=== PATIENT | female | born 1940 | race Caucasian/White ===

== ENCOUNTER 2019-10-16 14:15 | Inpatient (IN) | payer MEDICARE, SELFPAY ==
[2019-10-16] VITALS (10 sets, daily range): BP systolic 104–150; BP diastolic 63–92; PULSE 88–130; RESP 18–22; TEMP 36.6–37.2; O2SAT 93–100; BMI 33.3
--- NOTE | ~2019-10-16 | XR_ITS ---
EXAMINATION: XR chest 1V portable EXAM DATE: 10/16/2019 16:50 INDICATION: Fatigue, symptoms 2 months. TECHNIQUE: Portable AP frontal chest x-ray was obtained. There is no prior study for comparison. FINDINGS: The cardiac silhouette is enlarged. There is pulmonary vascular congestion. There is indist inct reticulation with a bibasal predominance which may indicate pulmonary edema. Bibasilar pneumonia not excludable. Small to moderate pleural effusions bilaterally. There is no pneumothorax suspected. There is aortic arterial sclerosis. There are bony degenerative changes. IMPRESSION: 1. Findings consistent with moderate CHF exacerbation. 2. Basilar pneumonia not excludable. Reviewed, dictated and finalized at location A. INSPECTOR
--- NOTE | 2019-10-16 14:43 | ECG_ITS ---
Measurements Intervals [place] Rate: 117 P: MA: 0 QRS: 19 QRSD: 76 T: 100 QT: 292 QTc: 409 Interpretive Statements ATRIAL FIBRILLATION WITH RAPID VENTRICULAR RESPONSE ANTEROSEPTAL INFARCT, AGE INDETERMINATE BORDERLINE ST-T WAVE ABNORMALITY- INF/LAT LEADS ABNORMAL ECG Electronically Signed On 10-16-2019 14:56:02 CHANGE OVER by José Miguel Sarkar D.O.
[2019-10-16 15:01] LABS: Basophils Percent Auto 0.7 % (0.2-1.2); Eosinophils Absolute Auto 0.2 K/mm3 (0-0.3); Eosinophils Percent Auto 2.8 % (0-4.4); Hematocrit 41.4 % (37.0-47.0); Hemoglobin 13.3 g/dL (12.0-15.0); Immature Granulocyte Absolute 0.02 K/mm3 (0.00-0.031); Immature Granulocyte Percent A 0.4 % (0-0.5); Lymphocytes Absolute Auto 1.78 K/mm3 (0.9-3.2); Lymphocytes Percent Auto 32.8 % (18.3-44.2); Mean Corpuscular HGB Conc 32.1 g/dl (32-36); Mean Corpuscular Hemoglobin 29.8 pg (26-34); Mean Corpuscular Volume 92.6 fl (80-100); Mean Platelet Volume 10.3 fl (7.4-10.4); Monocytes Absolute Auto 0.7 K/mm3 (0.1-0.6); Monocytes Percent Auto 12.4 % (2.6-8.5); Neutrophils Absolute Auto 2.8 K/mm3 (1.3-6.7); Neutrophils Percent Auto 50.9 % (45.5-73.1); Platelet Count Result 195 k/mm3 (150-375); Red Blood Count 4.47 M/mm3 (4.2-5.4); Red Cell Distribution Width 15.2 % (11.5-14.5); White Blood Count 5.4 K/mm3 (4.5-10.0)
[2019-10-16 15:18] LABS: Alanine Aminotransferase 22 U/L (4-35); Albumin Level 3.8 g/dL (3.5-5.1); Alkaline Phosphatase 53 U/L (38-126); Aspartate Amino Transferase 27 U/L (14-36); Bilirubin,Total 0.9 mg/dL (0.2-1.3); Blood Urea Nitrogen 18 mg/dL (7-17); Calcium 9.3 mg/dL (8.4-10.2); Carbon Dioxide 24 mmol/L (22-30); Chloride 102 mmol/L (98-107); Estimated CRCL calculation 52 ml/min; Estimated Glomerular Filt Rate 60; Glucose 101 mg/dL (65-105); Potassium 4.1 mmol/L (3.4-5.0); Sodium 135 mmol/L (137-145)
--- NOTE | 2019-10-16 16:24 | ED.WEAKNESS ---
HPI - Weakness General Chief complaint: Weakness Stated complaint: Weakness, lymphadema Time Seen by Provider: 10/16/19 16:21 Source: patient, family () and RN notes reviewed Mode of arrival: ambulatory Limitations: no limitations History of Present Illness HPI Narrative: Pt is a 78 y/o female presenting to the ED c/o weakness. Pt reports she has been experiencing generalized weakness since last August. Pt states she has been seen by her PCP in September of this year, Dr. Torres, who suspects she has not been receiving adequate sleep and stated the pt should take Melatonin. Pt states she called her Home Care Music Therapist, Dr. Faith, last week who suggested the pt see her PCP again. Pt also reports BLE swelling for years that has gradually worsened, but denies hemoptysis. Pt states she has had an active hemorrhoid for a long time that causes bleeding. Pt states she is currently taking Eliquis due to a Hx of A Fib. Pt notes she last had her blood drawn in September of this year. Pt also reports Hx's of DM, HTN, HLD, and hypothyroid, but denies Hx's of emphysema, Asthma, COPD, cancer, [place], TIA, CVA, CHF, or anemia. Onset (ago): month(s) (2) Location: generalized Associated symptoms: other (Chronic BLE swelling) Related Data Allergies Allergy/AdvReac Type Severity Reaction Status Date / Time No Known Allergies Allergy Verified 10/16/19 16:43 Review of Systems Review of Systems: All systems reviewed & are unremarkable except as noted in HPI and below Constitutional: Constitutional: Reports weakness (Generalized) Respiratory: Respiratory: Denies hemoptysis Integumentary/Breasts: Skin/Breast: Reports swelling (Chronic BLE) PMFSH Past Medical History Medical History (Updated 10/16/19 @ 19:14 by Migel Wagoner MD) Diabetes mellitus Hemorrhoid HLD (hyperlipidemia) HTN (hypertension) Hypothyroid Surgical History Surgical History No significant past surgical history Social History Social History Smoking status: Never smoker Gender identity (if verbalized by the patient): Female Exam Narrative: Exam Narrative: General appearance: Well-developed, well-nourished, anxious, at bedside Skin: Pale, 2+ edema lower extremity up to the knees bilaterally Head: Normocephalic, nontraumatic Eyes: Clear conjunctiva ENT: Oropharynx normal, ears normal, nose normal Neck: Supple, nontender Chest and respiratory: Airway patent, no respiratory distress, no accessory muscle use Heart: Regular rate/rhythm Abdomen: Soft, nontender, no organomegaly, quiet bowel sounds Vascular: Normal peripheral pulses, normal capillary refill. Musculoskeletal: Normal range of motion, nontender back Neurologic: Alert and oriented ?3, ETYMOLOGY TEACHER is normal as tested, no gross motor deficit Course Course Emergency Course: Stable Vital Signs Vital signs: Vital Signs Temperature 36.7 C 10/16/19 14:43 Pulse Rate 117 H 10/16/19 14:43 Respiratory Rate 18 10/16/19 14:43 Blood Pressure 150/76 H 10/16/19 14:43 Pulse Oximetry 100 10/16/19 14:43 Temperature 36.7 C 10/16/19 14:43 Pulse Rate 120 H 10/16/19 18:49 Respiratory Rate 18 10/16/19 18:49 Blood Pressure 140/81 10/16/19 18:49 Pulse Oximetry 98 10/16/19 18:49 MDM - Weakness MDM Narrative Medical decision making narrative: Patient presents with generalized weakness, lower extremity edema since August 2019. My differential diagnosis is electrolyte imbalance, urinary tract infection, pneumonia, congestive heart failure, hepatic failure, renal failure. Versus depression. Labs, chest x-ray and UA ordered. Furthe
[2019-10-16 17:11] LABS: Add Urine Microscopic? YES; Appearance Urine Cloudy (Clear); Bacteria Urine 4+ /hpf; Bilirubin Urine Negative (Negative); Blood Urine 2+ (Negative); Color Urine Yellow (Yellow); Glucose Urine UA Negative (Negative); Ketones Urine Negative (Negative); Leukocyte Esterase Ur 3+ LEU/UL (Negative); Mucus Urine Rare /lpf; Nitrate Urine Negative (Negative); Protein Urine Negative (Negative); Specific Grav Ur 1.015 (1.001-1.035); Squamous Epithelial Cell Urine Occasional /hpf (Few); WBC Urine >75 /hpf
[2019-10-16 18:36] LABS: NT Pro B Type Natriuretic Pept 2780 PG/ML (5-100)
--- NOTE | 2019-10-16 19:29 | PC.NURSE ---
pt requesting to talk w/ doctor. EDP notified.
[2019-10-16] MEDS: FUROSEMIDE INJ 40 MG/4 ML VIAL 60 MG IV PUSH (19:38)
[2019-10-16] MEDS: NITROGLYCERIN OINTMENT 1 INCH DOSE TRANSDERM (19:43)
--- NOTE | 2019-10-16 20:13 | PM.IMHP ---
H&P: HPI History of Present Illness Chief complaint: Generalized weakness since August Narrative: This is a 78 year old diabetic female known to be on chronic anticoagulation w/ Eliquis secondary to chronic atrial fibrillation, HTN, hyperlipidemia who presented to the hospital with a complaint of worsening fatigue and generalized weakness. She has been experiencing generalized weakness and worsening LE edema since August although she reports that there has been a gradual onset over the past few years. Today she presented to the hospital as her weakness, swelling, and exertional shortness of breath have worsened over the past few days. She also has had intermittent rectal bleeding which she attributes to her eliquis and hemorhroids. She is very frustrated as she just saw her Communications Systems Engineer, Dr. Faith and complained about her worsening LE edema and they simply suggested she go and see her PCP. She has had worsening exertional shortness of breath lately as well as worsening LE edema. She has to put her legs up every day to try to get her swelling to go down. She is not currently on any diuretic therapy. She has also had increased abdominal distention and reports chronic UTIs secondary to a bladder prolapse for which she has a scheduled surgery this upcoming Wednesday. She usually knows when she is coming down with a UTI and has not had any recent urinary symptoms. She denies any fever, chills, coughing, sore throat, congestion, chest pain, abdominal pain, dysuria, hematuria, diarrhea, nausea, or vomiting. The patient was evaluated in the ER tonight and found to be in atrial fibrillation w/ RVR, acute CHF exacerbation and have an abnormal urinalysis. She has been treated with Lasix IV and IV ceftriaxone. No other complaints. Review of Systems Review of Systems: All systems reviewed & are unremarkable except as noted in HPI and below [facility] Past Medical History Medical History (Updated 10/16/19 @ 20:32 by Dimitris Murphy MD) Diabetes mellitus Hemorrhoid HLD (hyperlipidemia) HTN (hypertension) Hypothyroid Surgical History Surgical History (Updated 10/16/19 @ 20:32 by Dimitris Murphy MD) History of appendectomy No significant past surgical history S/P knee replacement Social History Social History (Updated 10/16/19 @ 20:33 by Dimitris Murphy MD) Smoking packs per day: 1 Smoking cigarettes per day: 20.0 Years smoked: 10 Smoking pack-years: 10.00 Smoking status: Former smoker Tobacco type: cigarettes Second hand tobacco smoke exposure: Yes Additional smoking assessment comments: Patient smoked for 10 years from [age] years of age. 1ppd. Alcohol intake: never Alcohol use details: drinks occasionally 1 drink Substance use: never Living arrangements: with family Gender identity (if verbalized by the patient): Female Spiritual care concerns: No Agree to blood products: No Meds Home Medications and Allergies Home Medications Medication Instructions Recorded Confirmed Type nitrofurantoin monohyd/m-cryst 100 mg PO Q12H 5 Days #10 cap 10/16/19 Rx [Macrobid] amlodipine 10 mg PO DAILY 10/17/19 10/17/19 History apixaban [Eliquis] 5 mg PO DAILY 10/17/19 10/17/19 History carvedilol 25 mg PO BID 10/17/19 10/17/19 History levothyroxine 100 mcg PO DAILY 10/17/19 10/17/19 History lisinopril 20 mg PO BID 10/17/19 10/17/19 History metformin 500 mg PO DAILY 10/17/19 10/17/19 History Allergies Allergy/AdvReac Type Severity Reaction Status Date / Time No Known Allergies Allergy Verified 10/16/19 16:43 Vital Signs Vital Signs - 24 hr 10/16/19 14:43 10/16/19 18:10 10/16/19 18:49 Temperature 36.7 C Pulse Rate 117 H 119 H 120 H Respiratory Rate 18 22 H 18 Blood Pressure 150/76 H 140/81 140/81 Pulse Oximetry 100 95 98 10/16/19 19:31 10/16/19 19:32 Temperature Pulse Rate 88 130 H Respiratory Rate 22 H Blood Pressure 125/92 H Pulse Oximetry 93 Exam Const: General
--- NOTE | 2019-10-16 21:07 | ADMGEN ---
This patient, Jacqueline Fine, was admitted to IMU Room 200-01. Patient/family oriented to hospital policies and general routines including ID bracelet, bed and alarms, visiting hours, pain management, procedures, bathroom and other care routines, personal items, smoking policy, room service/diet, and visiting hours. Valuables list has been completed. Information on how to activate the Rapid Response Team has been discussed. Patient/Family are encouraged to report perceived risks to care and to ask questions if they do not understand what they are told or what they should do.
[2019-10-16 21:20] LABS: Glucose Point of Care 119 (65-105)
[2019-10-16 23:40] LABS: Troponin I < 0.012 ng/mL (0.000-0.034)
[2019-10-17] VITALS (15 sets, daily range): BP systolic 116–136; BP diastolic 68–81; PULSE 75–126; RESP 18–97; TEMP 36.6–37.1; O2SAT 16–95
--- NOTE | 2019-10-17 | ECHO_ITS ---
Patient Info Name: Jacqueline Fine Age: 79 years : 1940 Gender: Female Ht: 66 in Wt: 207 lbs BSA: 2.13 m2 HR: 90 bpm BP: 118 / 75 mmHg Technical Quality: Good Exam Date: 10/17/2019 11:00 AM Exam Location: [facility] Patient Status: Inpatient Admit Date: 10/16/2019 Staff Ordering Physician: Dimitris Murphy MD Manager Change: Burak Keating, MARY, RT Attending Provider: Eusebio Luther MD Referring Physician: Katherine CLIFTON; Exam Type: CA echo doppler color flow Study Info Indications I50.9 - Heart failure, unspecified Complete two-dimensional, color flow and Doppler transthoracic echocardiogram is performed. Summary 1. Left ventricular chamber dimension is normal. 2. Left ventricular systolic function is normal, estimated at 55-60%. 3. There is moderately increased left ventricular wall thickness. 4. The left ventricular diastolic function is indeterminate. 5. Tissue doppler is not performed. 6. Patient is in atrial fibrillation. 7. Left atrial chamber dimension is severely enlarged. 8. Right atrial chamber dimension is mildly enlarged. 9. There is moderate aortic valve sclerosis. 10. There is mild aortic valve stenosis with a peak velocity of 228 cm/s, mean gradient of 7 mmHg, and aortic valve area of 1.9 cm2. 11. Moderate mitral annular calcification. 12. There is moderate to severe mitral valve regurgitation. 13. There is mild to moderate tricuspid valve regurgitation. 14. Mild pulmonary hypertension, estimated pulmonary arterial systolic pressure is 46 mmHg. 15. Dilated inferior vena cava with <50% collapse upon inspiration consistent with significantly elevated right atrial pressure, 15 mmHg. Left Ventricle Patient is in atrial fibrillation. Tissue doppler is not performed. Left ventricular chamber dimension is normal. Left ventricular systolic function is normal, estimated at 55-60%. There is moderately increased left ventricular wall thickness. The left ventricular diastolic function is indeterminate. Right Ventricle Right ventricular chamber dimension is normal. Right ventricular systolic function is normal. Left Atria Left atrial chamber dimension is severely enlarged. Right Atria Right atrial chamber dimension is mildly enlarged. Aortic Valve The aortic valve is probable trileaflet. There is moderate aortic valve sclerosis. There is mild aortic valve stenosis with a peak velocity of 228 cm/s, mean gradient of 7 mmHg, and aortic valve area of 1.9 cm2. There is no aortic valve regurgitation. Pulmonic Valve There is no pulmonic regurgitation. Mitral Valve Moderate mitral annular calcification. There is no mitral valve stenosis. There is moderate to severe mitral valve regurgitation. Tricuspid Valve There is mild to moderate tricuspid valve regurgitation. Mild pulmonary hypertension, estimated pulmonary arterial systolic pressure is 46 mmHg. Pericardium/Pleural There is no pericardial effusion. Inferior Vena Cava Dilated inferior vena cava with <50% collapse upon inspiration consistent with significantly elevated right atrial pressure, 15 mmHg. Aorta The aortic root size at the sinus of Valsalva is normal. Left Ventricular Outflow Tract Name Value Normal LVOT 2D
[2019-10-17 02:36] LABS: Troponin I 0.014 ng/mL (0.000-0.034)
[2019-10-17 06:00] LABS: Blood Urea Nitrogen 18 mg/dL (7-17); Carbon Dioxide 26 mmol/L (22-30); Chloride 102 mmol/L (98-107); Estimated CRCL calculation 51 ml/min; Estimated Glomerular Filt Rate 60; Glucose 92 mg/dL (65-105); Potassium 3.3 mmol/L (3.4-5.0); Sodium 139 mmol/L (137-145)
[2019-10-17 06:03] LABS: Troponin I 0.021 ng/mL (0.000-0.034)
[2019-10-17 08:49] LABS: Glucose Point of Care 116 (65-105)
[2019-10-17] MEDS: FUROSEMIDE INJ 40 MG/4 ML VIAL IV PUSH (09:07)
[2019-10-17] MEDS: POTASSIUM CHLORIDE 20 MEQ TABLET 40 MEQ PO (09:07)
--- NOTE | 2019-10-17 12:05 | PM.IMPN ---
Progress Note: A&P Assessment and Plan (1) Atrial fibrillation with rapid ventricular response: Code(s): I48.91 - Unspecified atrial fibrillation Status: Acute Assessment and Plan: Patient with chronic AFIB now with RVR. Patient admitted to the IMU and started on Cardizem IV for rate control. Echo ordered. Will consult cardiology. Resume Eliquis. Resume Coreg with plans to stop Diltiazem. Obtain old records. Discussed with Cardiology. Also, Echo returned showing mod-sever MR with preserved EF 55-60% and pulmonary HTN. (2) CHF (congestive heart failure): Qualifiers: Heart failure chronicity: acute Heart failure type: unspecified Qualified Code(s): I50.9 - Heart failure, unspecified Code(s): I50.9 - Heart failure, unspecified Status: Acute Assessment and Plan: Conditon improved today. Currently on IV Lasix with excellent UOP. Replace K+. Monitor electrolytes and kideny function. Echo ordered. (3) HTN (hypertension): Qualifiers: Hypertension type: unspecified Qualified Code(s): I10 - Essential (primary) hypertension Code(s): I10 - Essential (primary) hypertension Status: Chronic Assessment and Plan: BP reviewed on 10/17/19. BP well controlled. Continue Diltiazem drip. Add back home Coreg. (4) Diabetes mellitus: Qualifiers: Diabetes mellitus complication status: without complication Diabetes mellitus snf insulin use: without snf use Diabetes mellitus type: type 2 Qualified Code(s): E11.9 - Type 2 diabetes mellitus without complications Code(s): E11.9 - Type 2 diabetes mellitus without complications Status: Chronic Assessment and Plan: Glucose reviewed on 10/17/19. Glucose well controlled. Her home metformin on hold. Contineu Accuchecks with SSI Coverage. Hypoglycemic protocol available. (5) Urinary tract infection: Qualifiers: Hematuria presence: without hematuria Urinary tract infection type: site unspecified Qualified Code(s): N39.0 - Urinary tract infection, site not specified Code(s): N39.0 - Urinary tract infection, site not specified Status: Acute Assessment and Plan: UA noted and concered for UTI. Rocephin started in ER. Will continue. Follow up on UCx results. (6) Hypothyroidism: Qualifiers: Hypothyroidism type: unspecified Qualified Code(s): E03.9 - Hypothyroidism, unspecified Code(s): E03.9 - Hypothyroidism, unspecified Status: Acute Assessment and Plan: TSH mildly elevated. Probably not clinically significant. Resume home Synthroid dose and plan to recheck levels after discharge. Subjective Date/time seen: 10/17/19 12:05 Interval history: 78yo female with chronic AFib here for AFib/RVR and CHF. Assuming care. Chart reviewed. She denies chest pain shortness of breath. She does state that she would get 'heaviness'and chest when she exerts herself. She has had a recent stress test few months ago that was negative. She sees Dr. Faith who is a safekeeping clerk in [place]. Prior to admission, she was having trouble sleeping at night and was restless. She did sleep in recliner with benefit. She feels better today. Exam Narrative: Exam Narrative: Gen - NARD Neck- no elevation of JVP. Chest -decreased breath sounds bibasilar with inspiratory crackles mid lower lung hooper CV - irregularly irregular. 2/6 murmur loudest LUSB. Tele showing AFIb with occas RVR. Abd - Soft, NT/ND, Positive BS. No HJR - Wick anchored draining clear yellow urine Ext - 2-3+ pitting pedal edema Neuro - nonfocal Psych - alert, pleasant and cooperative Skin - Warm and dry Objective Data Vital Signs Vital Signs: Vital Signs - 24 hr 10/16/19 14:43 10/16/19 18:10 10/16/19 18:49 Temperature 98.0 F Pulse Rate 117 H 119 H 120 H Respiratory Rate 18 22 H 18 Blood Pressure 150/76 H 140/81 140/81 Pulse
--- NOTE | 2019-10-17 12:57 | PM.CNCAR ---
Assessment and Plan Assessment and plan (1) HTN (hypertension): Qualifiers: Hypertension type: unspecified Qualified Code(s): I10 - Essential (primary) hypertension Code(s): I10 - Essential (primary) hypertension Status: Chronic (2) HLD (hyperlipidemia): Qualifiers: Hyperlipidemia type: unspecified Qualified Code(s): E78.5 - Hyperlipidemia, unspecified Code(s): E78.5 - Hyperlipidemia, unspecified Status: Chronic (3) Atrial fibrillation with rapid ventricular response: Code(s): I48.91 - Unspecified atrial fibrillation Status: Acute Assessment and Plan: [id number] 5. Rate control with Diltiazem drip and Coreg. Once rate is controlled will transition to PO medications. On Eliquis. (4) CHF (congestive heart failure): Qualifiers: Heart failure chronicity: acute Heart failure type: unspecified Qualified Code(s): I50.9 - Heart failure, unspecified Code(s): I50.9 - Heart failure, unspecified Status: Acute Assessment and Plan: Check echo. Continue Lasix for diureses and replete Potassium. Check Mag level. History of Present Illness History of Present Illness Consult date/time: 10/17/19 12:57 Consult regarding atrial fib and CHF. 79 yr old woman with a history of hypertension, dyslipidemia, atrial fibrillation, DM who sees Dr. Faith at [facility] in [place] who presents to hospital for generalized weaknesss since August. She also notes worsening lower extremity edema and BARNETT walking minimal distance. Denies chest discomfort. Reports atrial fibrillation diagnosed in Jun and has been on rate control and Eliquis for it. Denies palpitations. She came to ER and found to be in CHF and rapid atrial fibrillation and UTI. She is on rate control with diltiazem drip and Coreg. Reports she had stress test and echo in last 1-[address] Faith. Reason For Visit: Generalized weakness since August Review of Systems Constitutional: Constitutional: Reports as per HPI, Reports lethargy and Reports weakness Cardiovascular: Cardiovascular: Reports as per HPI, Denies chest pain, Reports leg edema, Denies lightheadedness and Denies palpitations Gastrointestinal: Gastrointestinal: Reports as per HPI and Denies abdominal pain Genitourinary: Genitourinary: Reports as per HPI Musculoskeletal: Musculoskeletal: Reports as per HPI Neurologic: Reports as per HPI PMFSH Past Medical History Medical History (Updated 10/16/19 @ 20:32 by Dimitris Murphy MD) Diabetes mellitus Hemorrhoid HLD (hyperlipidemia) HTN (hypertension) Hypothyroid Surgical History Surgical History (Updated 10/16/19 @ 20:32 by Dimitris Murphy MD) History of appendectomy No significant past surgical history S/P knee replacement Social History Social History (Updated 10/16/19 @ 20:33 by Dimitris Murphy MD) Smoking packs per day: 1 Smoking cigarettes per day: 20.0 Years smoked: 10 Smoking pack-years: 10.00 Smoking status: Former smoker Tobacco type: cigarettes Second hand tobacco smoke exposure: Yes Additional smoking assessment comments: Patient smoked for 10 years from [age] years of age. 1ppd. Alcohol intake: never Alcohol use details: drinks occasionally 1 drink Substance use: never Living arrangements: with family Gender identity (if verbalized by the patient): Female Spiritual care concerns: No Agree to blood products: No Meds Home Medications and Allergies Home Medications Medication Instructions Recorded Confirmed Type nitrofurantoin monohyd/m-cryst 100 mg PO Q12H 5 Days #10 cap 10/16/19 Rx [Macrobid] amlodipine 10 mg PO DAILY 10/17/19 10/17/19 History apixaban [Eliquis] 5 mg PO DAILY 10/17/19 10/17/19 History carvedilol 25 mg PO BID 10/17/19 10/17/19 History levothyroxine 100 mcg PO DAILY 10/17/19 10/17/19 History lisinopril 20 mg PO BID 10/17/19 10/17/19 History metformin 500 mg PO DAILY 02
[2019-10-17 13:04] LABS: Glucose Point of Care 108 (65-105)
[2019-10-17 13:37] LABS: Magnesium 1.7 mg/dL (1.6-2.3)
[2019-10-17 17:26] LABS: Glucose Point of Care 104 (65-105)
[2019-10-17] MEDS: APIXABAN 5 MG TABLET PO (18:15)
[2019-10-17] MEDS: carvediloL 25 MG TABLET PO (20:03)
[2019-10-17 20:49] LABS: Glucose Point of Care 116 (65-105)
[2019-10-18] VITALS (17 sets, daily range): BP systolic 117–134; BP diastolic 54–85; PULSE 70–106; RESP 16–20; TEMP 36.2–37.2; O2SAT 90–98
[2019-10-18 04:46] LABS: Hematocrit 42.4 % (37.0-47.0); Hemoglobin 12.6 g/dL (12.0-15.0); Mean Corpuscular HGB Conc 29.7 g/dl (32-36); Mean Corpuscular Hemoglobin 29.4 pg (26-34); Mean Corpuscular Volume 99.1 fl (80-100); Mean Platelet Volume 10.6 fl (7.4-10.4); Platelet Count Result 156 k/mm3 (150-375); Red Blood Count 4.28 M/mm3 (4.2-5.4); Red Cell Distribution Width 15.3 % (11.5-14.5)
[2019-10-18] MEDS: LEVOTHYROXINE SODIUM 100 MCG TABLET PO (06:29)
[2019-10-18 06:40] LABS: Albumin Level 3.3 g/dL (3.5-5.1); Blood Urea Nitrogen 19 mg/dL (7-17); Calcium 8.8 mg/dL (8.4-10.2); Carbon Dioxide 27 mmol/L (22-30); Chloride 103 mmol/L (98-107); Estimated CRCL calculation 49 ml/min; Estimated Glomerular Filt Rate 60; Glucose 111 mg/dL (65-105); Magnesium 1.8 mg/dL (1.6-2.3); Phosphorus 4.1 mg/dL (2.5-4.5); Potassium 3.6 mmol/L (3.4-5.0); Sodium 138 mmol/L (137-145)
[2019-10-18 08:24] LABS: Glucose Point of Care 127 (65-105)
[2019-10-18] MEDS: APIXABAN 5 MG TABLET PO ×2 (08:38→17:38)
[2019-10-18] MEDS: carvediloL 25 MG TABLET PO ×2 (08:39→20:28)
[2019-10-18] MEDS: FUROSEMIDE INJ 40 MG/4 ML VIAL IV PUSH (08:39)
--- NOTE | 2019-10-18 09:34 | PM.PNCARD ---
Progress Note: A&P Assessment and Plan (1) HTN (hypertension): Qualifiers: Hypertension type: unspecified Qualified Code(s): I10 - Essential (primary) hypertension Code(s): I10 - Essential (primary) hypertension Status: Chronic Assessment and Plan: Stable. (2) HLD (hyperlipidemia): Qualifiers: Hyperlipidemia type: unspecified Qualified Code(s): E78.5 - Hyperlipidemia, unspecified Code(s): E78.5 - Hyperlipidemia, unspecified Status: Chronic (3) Atrial fibrillation with rapid ventricular response: Code(s): I48.91 - Unspecified atrial fibrillation Status: Acute Assessment and Plan: [id number] 5. Rate control with Diltiazem drip and Coreg. Will stop Diltiazem drip and start PO dosing to maintain rate control. On Eliquis (4) CHF (congestive heart failure): Qualifiers: Heart failure chronicity: acute Heart failure type: unspecified Qualified Code(s): I50.9 - Heart failure, unspecified Code(s): I50.9 - Heart failure, unspecified Status: Acute Assessment and Plan: She has heart failure with preserved EF (diastolic heart failure) with mod-severe MR. Continue with diuresis. Subjective Date/time seen: 10/18/19 09:34 States her breathing is improving and less leg edema. Exam Const: General: comfortable and no acute distress Neck: Neck: no JVD Resp: Effort & Inspection: normal respiratory effort Auscultation: crackles, no rales, no rhonchi and no wheezes Other: Mild right base crackles Cardio: Rate: regular rate Rhythm: abnormal rhythm Heart sounds: no murmurs GI: Inspection: non-distended Neuro: Speech: normal speech Extrem: Right lower extremity: edema Left lower extremity: edema Other: Mild edema of both legs Objective Data Vital Signs Vital Signs: Vital Signs - 24 hr 10/17/19 10:00 10/17/19 12:00 10/17/19 14:00 Temperature 98.5 F Pulse Rate 89 104 H 102 H Respiratory Rate 20 Blood Pressure 131/74 Pulse Oximetry 95 10/17/19 16:00 10/17/19 18:00 10/17/19 19:34 Temperature 98.3 F 97.9 F Pulse Rate 97 82 84 Respiratory Rate 97 H 18 Blood Pressure 127/72 130/68 Pulse Oximetry 16 L 95 10/17/19 20:00 10/17/19 20:03 10/17/19 21:57 Temperature Pulse Rate 97 101 H 113 H Respiratory Rate Blood Pressure Pulse Oximetry 10/17/19 23:59 10/18/19 00:00 10/18/19 02:00 Temperature 98.0 F Pulse Rate 75 91 106 H Respiratory Rate 20 Blood Pressure 124/78 Pulse Oximetry 90 10/18/19 04:00 10/18/19 04:05 10/18/19 06:00 Temperature 99.0 F Pulse Rate 86 84 104 H Respiratory Rate 20 Blood Pressure 134/85 Pulse Oximetry 91 10/18/19 08:00 10/18/19 08:39 Temperature 97.8 F Pulse Rate 103 H 95 Respiratory Rate 18 Blood Pressure 121/69 Pulse Oximetry 95 Intake/Output Intake/Output: Intake & Output 10/15/19 10/16/19 10/17/19 10/18/19 23:59 23:59 23:59 23:59 Intake Total 50 1210 240 Output Total 7800 550 Balance 74 -2926 -943 Meds/Results Medications: Active Medications Generic Name Dose Route Start Last Admin Trade Name Freq PRN Reason Stop Dose Admin Apixaban 5 mg 10/18/19 09:00 10/18/19 08:38 Eliquis PO 5 mg BID GEOVANNI Administration Carvedilol 25 mg 10/17/19 21:00 10/18/19 08:39 Coreg PO 25 mg Q12HR GEOVANNI Administration Dextrose 12.5 gm 10/16/19 20:14 Dextrose 50% Syringe IV PUSH PRN PRN Hypoglycemia Protocol Furosemide 40 mg 10/17/19 09:00 10/18/19 08:39 Lasix Inj IV PUSH 40 mg DAILY GEOVANNI Administration Glucagon 1 mg 10/16/19 20:14 Glucagon For Inj IM PRN PRN Hypoglycemia Protocol Glucose 15 gm 10/16/19 20:14 Glutose 15 PO PRN PRN Hypoglycemia Protocol Diltiazem HCl 100 mg in 100 mls @ 5 mls/hr 10/16/19 20:30 10/17/19 18:14 Cardizem 100 Mg/D5w 100 Ml IV CONT 5 mg/hr .Q20H GEOVANNI 5 mls/hr Administratio
[2019-10-18 12:04] LABS: Glucose Point of Care 116 (65-105)
--- NOTE | 2019-10-18 17:12 | PM.IMPN ---
Progress Note: A&P Assessment and Plan (1) Atrial fibrillation with rapid ventricular response: Code(s): I48.91 - Unspecified atrial fibrillation Status: Acute Assessment and Plan: Patient with chronic AFIB now with RVR. Patient admitted to the IMU and started on Cardizem IV for rate control. Cardiology consulted and appreciate their input. Echo returned showing moderate-severe MR with preserved EF 55-60% and pulmonary HTN. Eliquis resumed. Coreg resumed and Diltiazem changed to oral route. She tolerated this well. Increase activity level as tolerated. Continue monitor worker heart rate. (2) CHF (congestive heart failure): Qualifiers: Heart failure chronicity: acute Heart failure type: unspecified Qualified Code(s): I50.9 - Heart failure, unspecified Code(s): I50.9 - Heart failure, unspecified Status: Acute Assessment and Plan: Chronic diastolic CHF. Could be related to valvular disease. Edema continues to improve. UOP 7.8L yesterday. Currently on IV Lasix. Potassium normal. Monitor electrolytes and kideny function. (3) HTN (hypertension): Qualifiers: Hypertension type: unspecified Qualified Code(s): I10 - Essential (primary) hypertension Code(s): I10 - Essential (primary) hypertension Status: Chronic Assessment and Plan: BP reviewed on 10/18/19. BP well controlled. She appears to be toelrating these medication changes. Continue Coreg and diltiazem. (4) Diabetes mellitus: Qualifiers: Diabetes mellitus type: type 2 Diabetes mellitus half-way insulin use: without half-way use Diabetes mellitus complication status: without complication Qualified Code(s): E11.9 - Type 2 diabetes mellitus without complications Code(s): E11.9 - Type 2 diabetes mellitus without complications Status: Chronic Assessment and Plan: Glucose reviewed on 10/18/19. Glucose remains well controlled. Her home metformin on hold. Continue Accuchecks with SSI coverage. Hypoglycemic protocol available. (5) Urinary tract infection: Qualifiers: Hematuria presence: without hematuria Urinary tract infection type: site unspecified Qualified Code(s): N39.0 - Urinary tract infection, site not specified Code(s): N39.0 - Urinary tract infection, site not specified Status: Acute Assessment and Plan: UA concerning for UTI. Rocephin started in ER. UCx growing EColi sensitive to ceftriaxone. Rocephin day 3. Continue the same. (6) Hypothyroidism: Qualifiers: Hypothyroidism type: unspecified Qualified Code(s): E03.9 - Hypothyroidism, unspecified Code(s): E03.9 - Hypothyroidism, unspecified Status: Acute Assessment and Plan: TSH mildly elevated. Probably not clinically significant. Continue home Synthroid dose and plan to recheck levels after discharge. (7) Mitral regurgitation: Code(s): I34.0 - Nonrheumatic mitral (valve) insufficiency Status: Acute Assessment and Plan: Echo showing moderate to severe MR with pulmonary HTN. Cardiology following. Patient will need to be followed for this. Although felt related to the MR, will check apnea link given the pulm HTN. Subjective Date/time seen: 10/18/19 17:12 Interval history: 78yo female with chronic AFib here for AFib/RVR and CHF. No problems overnight. Feels well. Has not been out of bed yet. Eating okay. No n/v. changed to oral diltiazem today. Talked with Dr Guillaume this morning with plans to stop her Eliquis on for surgery for vaginal prolapse on Wednesday. Family later state that now plan will be to hold off of surgery for one week. Family in touch with Dr Guillaume. Explained that they should inform me if any change in the plan that I might need to be informed of. Exam Narrative: Exam Narrative: Gen Arturo BENJAMIN lying semi-recumbent in bed Chest -right base i
[2019-10-18 18:33] LABS: Glucose Point of Care 119 (65-105)
[2019-10-18 20:42] LABS: Glucose Point of Care 133 (65-105)
[2019-10-19] VITALS (10 sets, daily range): BP systolic 107–127; BP diastolic 45–67; PULSE 59–83; RESP 16–20; TEMP 36.2–36.7; O2SAT 90–97
[2019-10-19] MEDS: LEVOTHYROXINE SODIUM 100 MCG TABLET PO (06:08)
[2019-10-19 07:29] LABS: Blood Urea Nitrogen 24 mg/dL (7-17); Calcium 9.1 mg/dL (8.4-10.2); Carbon Dioxide 29 mmol/L (22-30); Chloride 99 mmol/L (98-107); Estimated CRCL calculation 48 ml/min; Estimated Glomerular Filt Rate 60; Glucose 113 mg/dL (65-105); Potassium 3.6 mmol/L (3.4-5.0); Sodium 137 mmol/L (137-145)
[2019-10-19 07:31] LABS: Glucose Point of Care 113 (65-105)
--- NOTE | 2019-10-19 08:25 | PM.PNCARD ---
Progress Note: A&P Assessment and Plan (1) HTN (hypertension): Qualifiers: Hypertension type: unspecified Qualified Code(s): I10 - Essential (primary) hypertension Code(s): I10 - Essential (primary) hypertension Status: Chronic Assessment and Plan: Stable. (2) HLD (hyperlipidemia): Qualifiers: Hyperlipidemia type: unspecified Qualified Code(s): E78.5 - Hyperlipidemia, unspecified Code(s): E78.5 - Hyperlipidemia, unspecified Status: Chronic (3) Atrial fibrillation with rapid ventricular response: Code(s): I48.91 - Unspecified atrial fibrillation Status: Acute Assessment and Plan: [id number] 5. Rate controlled with Diltiazem drip and Coreg. Will change Diltiazem 90 mg every 6 hours to Diltiazem CD 360 mg daily to maintain rate control. On Eliquis. (4) CHF (congestive heart failure): Qualifiers: Heart failure chronicity: acute Heart failure type: unspecified Qualified Code(s): I50.9 - Heart failure, unspecified Code(s): I50.9 - Heart failure, unspecified Status: Acute Assessment and Plan: She has heart failure with preserved EF (diastolic heart failure) with mod-severe MR. Continue with diuresis but will change to PO Furosemide. Discussed with Dr. Guillaume yesterday who is her urologist who plan on performing bladder prolapse surgery next . Subjective Date/time seen: 10/19/19 08:25 Reports no chest pain or sob. Minimal edema of legs. Exam Const: General: comfortable and no acute distress Neck: Neck: no JVD Resp: Auscultation: clear to auscultation bilaterally, no crackles, no rales, no rhonchi and no wheezes Cardio: Rate: regular rate Rhythm: abnormal rhythm Heart sounds: no murmurs GI: Inspection: non-distended Neuro: Speech: normal speech Extrem: Right lower extremity: edema Left lower extremity: edema Other: Trace edema of legs Objective Data Vital Signs Vital Signs: Vital Signs - 24 hr 10/18/19 08:39 10/18/19 10:00 10/18/19 12:00 Temperature 97.2 F L Pulse Rate 95 90 98 Respiratory Rate 16 Blood Pressure 120/59 L Pulse Oximetry 98 10/18/19 14:00 10/18/19 16:00 10/18/19 18:00 Temperature 97.5 F L Pulse Rate 94 84 87 Respiratory Rate 18 Blood Pressure 117/54 L Pulse Oximetry 97 10/18/19 20:00 10/18/19 20:11 10/18/19 20:28 Temperature 97.8 F Pulse Rate 71 81 91 Respiratory Rate 20 Blood Pressure 134/58 L Pulse Oximetry 92 10/18/19 22:00 10/18/19 23:44 10/19/19 00:00 Temperature 98.2 F Pulse Rate 70 74 76 Respiratory Rate 18 Blood Pressure 120/63 Pulse Oximetry 90 10/19/19 02:00 10/19/19 04:00 10/19/19 06:00 Temperature 98.0 F Pulse Rate 65 81 79 Respiratory Rate 20 Blood Pressure 127/67 Pulse Oximetry 90 Intake/Output Intake/Output: Intake & Output 10/16/19 10/17/19 10/18/19 10/19/19 23:59 23:59 23:59 23:59 Intake Total 50 1260 510 100 Output Total 7800 2750 0 Balance 50 -3640 -2240 100 Meds/Results Medications: Active Medications Generic Name Dose Route Start Last Admin Trade Name Freq PRN Reason Stop Dose Admin Apixaban 5 mg 10/18/19 09:00 10/18/19 17:38 Eliquis PO 5 mg BID GEOVANNI Administration Carvedilol 25 mg 10/17/19 21:00 10/18/19 20:28 Coreg PO 25 mg Q12HR GEOVANNI Administration Dextrose 12.5 gm 10/16/19 20:14 Dextrose 50% Syringe IV PUSH PRN PRN Hypoglycemia Protocol Diltiazem HCl 30 mg/ Diltiazem 90 mg 10/18/19 12:00 10/19/19 06:08 HCl 60 mg PO 90 mg Q6HR GEOVANNI Administration Furosemide 40 mg 10/17/19 09:00 10/18/19 08:39 Lasix Inj IV PUSH 40 mg DAILY GEOVANNI Administration Glucagon 1 mg 10/16/19 20:14 Glucagon For Inj IM PRN PRN Hypoglycemia Protocol Glucose 15 gm 10/16/19 20:14 Glutose 15 PO PRN PRN Hypoglycemia Protocol Dextrose 1,000 mls @ 100 mls/hr 10/16/19 20:14
[2019-10-19] MEDS: carvediloL 25 MG TABLET PO (10:10)
[2019-10-19] MEDS: APIXABAN 5 MG TABLET PO (10:10)
[2019-10-19] MEDS: FUROSEMIDE 40 MG TABLET PO (10:11)
--- NOTE | 2019-10-19 15:44 | PM.DS ---
DS: Diagnosis Admitting Diagnosis Admitting Diagnosis: Unspecified atrial fibrillation Discharge Diagnosis (1) Atrial fibrillation with rapid ventricular response: Code(s): I48.91 - Unspecified atrial fibrillation Status: Acute (2) CHF (congestive heart failure): Qualifiers: Heart failure chronicity: acute Heart failure type: unspecified Qualified Code(s): I50.9 - Heart failure, unspecified Code(s): I50.9 - Heart failure, unspecified Status: Acute (3) HTN (hypertension): Qualifiers: Hypertension type: unspecified Qualified Code(s): I10 - Essential (primary) hypertension Code(s): I10 - Essential (primary) hypertension Status: Chronic (4) Diabetes mellitus: Qualifiers: Diabetes mellitus type: type 2 Diabetes mellitus longterm insulin use: without longterm use Diabetes mellitus complication status: without complication Qualified Code(s): E11.9 - Type 2 diabetes mellitus without complications Code(s): E11.9 - Type 2 diabetes mellitus without complications Status: Chronic (5) Urinary tract infection: Qualifiers: Hematuria presence: without hematuria Urinary tract infection type: site unspecified Qualified Code(s): N39.0 - Urinary tract infection, site not specified Code(s): N39.0 - Urinary tract infection, site not specified Status: Acute (6) Hypothyroidism: Qualifiers: Hypothyroidism type: unspecified Qualified Code(s): E03.9 - Hypothyroidism, unspecified Code(s): E03.9 - Hypothyroidism, unspecified Status: Acute DS: Summary Hospital Course Reason for hospitalization: 79yo female here for AFib/RVR, CHF and UTI. Please see HnP for details. Status at Discharge Cognitive/behavioral status at discharge: Patient with chronic AFIB now with RVR. Patient admitted to the IMU and started on Cardizem IV for rate control. Cardiology consulted. Echo returned showing moderate-severe MR with preserved EF 55-60% and pulmonary HTN. Eliquis resumed. Coreg resumed and Diltiazem changed to oral route. She tolerated this well. Increase activity but heart rate remained stable. She had chronic diastolic CHF felt related to valvular disease and AFib/RVR treated with IV Lasix. Massive pedal edema but improved with diuresis. UOP up to 7.8L one day. Changed to oral Lasix. BP remained well controlled. Glucose also remained well controlled. UA consistent with UTI. Was started on Rocephin. Urine culture growing EColi sensitive to Rocephin but resistant to Cipro. Plan for urologic surgery in 1 week. Discussed with urologist who recommended continuing the abx for 1 week. TSH mildly elevated. Probably not clinically significant. We continued home Synthroid dose and plan to recheck levels after discharge. Echo showing moderate to severe MR with pulmonary HTN. Apnea link mildly positive showing AHI 9 and RI 11. Patient did well with clinical improvement. She did have poor UOP today and bladder scan showing 500mL. Urology wated patietn with chronic urine retention (had about 600mL when seen in the clinic). [place] she is having definitive surgery next week. She is up walking in the room without difficulty. Okay for discharge. Functional status at discharge: independent ambulation Overall status at discharge: patient is back to baseline Time Spent with Patient Time attestation: Total time spent providing and/or coordinating discharge services:40 minutes Time spent: Greater than 30 minutes Specific discharge activities: Discussed with urology Exam Narrative: Exam Narrative: Gen - NARD Chest - CTA bilaterally, nml RR CV - irregularly irregular. Tele showing AFIb with occasional (<2sec) pause Abd -soft. NT/ND, +BS Ext - 2+ pitting pedal edema Neuro - nonfocal Psych - alert, pleasant and cooperative Skin - Warm and dry DS: Data Data Completed and Pending Labs on day of discharge: Labs fro
[2019-10-19 17:49] LABS: Glucose Point of Care 120 (65-105)
[2019-10-19 18:03] LABS: Glucose Point of Care 122 (65-105)
== END 2019-10-19 17:54 | disposition home or self-care (01) | DRG 309 ==
LOC: ANHED 19:14 → ANHIMU 20:14
PROVIDERS: Emergency Medicine; Internal Medicine Cardiovascular Disease; Admitting Provider Family Medicine; Emergency Provider Emergency Medicine; PCP Internal Medicine; Visit Provider Internal Medicine
DX: I48.91 Unspecified atrial fibrillation (principal); N39.0 Urinary tract infection, site not specified; I50.32 Chronic diastolic (congestive) heart failure; E11.9 Type 2 diabetes mellitus without complications; Z79.01 Long term (current) use of anticoagulants; E78.5 Hyperlipidemia, unspecified; E03.9 Hypothyroidism, unspecified; K64.9 Unspecified hemorrhoids; Z96.659 Presence of unspecified artificial knee joint; Z87.891 Personal history of nicotine dependence; I34.0 Nonrheumatic mitral (valve) insufficiency; I11.0 Hypertensive heart disease with heart failure; B96.20 Unspecified Escherichia coli [E. coli] as the cause of diseases classified elsewhere
CPT/HCPCS: 36415; 71045; 80048; 80053; 80069; 81001; 83735; 83880; 84443; 84484; 85025; 85027; 87077; 87086; 87088; 87186; 93005; 93306; 94762; 96365; 96375; 99285; A9270; J0696; J1940

== ENCOUNTER → 2019-11-23 07:48 | Outpatient (CLI) | payer MEDICARE, SELFPAY ==
--- NOTE | ~2019-11-23 | US_ITS ---
EXAMINATION: US abdomen complete EXAM DATE: 11/23/2019 08:21 INDICATION: Hepatomegaly. TECHNIQUE: Multiple grayscale and Doppler images of the complete abdomen were obtained (by a technolo gist who performed the scan) and subsequently reviewed. There is no prior study for comparison. FINDINGS: The abdominal aorta is normal in caliber. Visualized portion IVC is patent. The pancreatic head a nd body are normal in appearance. The pancreatic tail is not visualized. The liver has normal echogenicity and contour. There are no focal liver lesions identified. There is no evidence of intrahepatic biliary duct dilation. Portal venous flow was seen in the hepatopedal , normal direction and has normal Doppler waveform. Common bile duct measures 3 mm, which is normal. Gallbladder is only mildly distended with diffusely mildly thickened wall at 4 mm. No cholelithiasis. Trace pericholecystic fluid. There is a 3 mm gallbl adder polyp requiring no further follow-up. Technologist performing exam reports patient did not demo nstrate sonographic Keating's sign. Please note that this sign is less reliable in patients who have received pain medication. Right kidney: There is normal contour and echogenicity. It measures 10.4 x 4.1 x 4.9 centimeters. There are no focal renal lesions identified. There is no hydronephrosis. Left kidney: There is normal contour and echogenicity. It measures 11.0 x 4.6 x 6.0 centimeters. T here are no focal renal lesions identified. There is no hydronephrosis. The spleen measures 12 centimeters and is morphologically normal. IMPRESSION: 1. Mild diffuse gallbladder wall thickening could be partly due to contracted state. Chronic cholecy stitis could have similar appearance but no symptoms reported. 2. Tiny gallbladder polyp. Reviewed, dictated and finalized at location B. IMPRESSION: 1. Mild diffuse gallbladder wall thickening could be partly due to contracted state. Chronic cholecystitis could have similar appearance but no symptoms repo rted. 2. Tiny gallbladder polyp.
== END ==
PROVIDERS: PCP Internal Medicine; Visit Provider Internal Medicine
DX: R16.0 Hepatomegaly, not elsewhere classified (principal); K82.4 Cholesterolosis of gallbladder
CPT/HCPCS: 76700

== ENCOUNTER 2020-09-13 10:11 | Observation (INO) | payer MEDICARE, SELFPAY ==
[2020-09-13] VITALS (18 sets, daily range): BP systolic 124–169; BP diastolic 66–137; PULSE 73–182; RESP 18–23; TEMP 36.1–36.3; O2SAT 92–100; BMI 32.5
--- NOTE | ~2020-09-13 | XR_ITS ---
EXAMINATION: XR chest 1V portable DATE: 09/13/2020 10:45 INDICATION: Shortness of breath. Hypertension. Atrial fibrillation. TECHNIQUE: frontal view of the chest was obtained. COMPARISON: Chest radiograph dated 10/16/2019 FINDINGS: Diffuse increased interstitial pattern in the mid and lower lung zones consistent with mild pulmonary edema. Moderate-sized hiatal hernia. Opacities at the left lower lung zone which could represent ate lectasis and/or pneumonia. No pneumothorax or definitive pleural effusion. Cardiomegaly. Cardiac pace maker lead tip in the right ventricle. IMPRESSION: 1. Likely congestive heart failure with cardiomegaly and mild pulmonary edema. 2. Mild opacities at the left lung base most likely atelectasis although differential includes pneumo reagan. 3. Hiatal hernia. Reviewed, dictated and finalized at location A. D ANIMAL VETERINARIAN IMPRESSION: 1. Likely congestive heart failure with cardiomegaly and mild pulmonary edema. 2. Mild opacities at the left lung base most likely atelectasis although differ ential includes pneumonia. 3. Hiatal hernia.
--- NOTE | 2020-09-13 10:23 | ECG_ITS ---
Measurements Intervals [place] Rate: 175 P: OK: 0 QRS: 24 QRSD: 72 T: 159 QT: 231 QTc: 395 Interpretive Statements ATRIAL FIBRILLATION WITH RAPID VENTRICULAR RESPONSE CANNOT RULE OUT SEPTAL INFARCT, AGE INDETERMINATE ST-T WAVE ABNORMALITY IN LAT/HIGH LAT LEADS- CONSIDER ISCHEMIA OR RATE RELATED BASELINE ARTIFACT- I, III, AVL, AVF, V3 ABNORMAL ECG Electronically Signed On 09-13-2020 10:34:05 SALES STRATEGY MANAGER by José Miguel Sarkar D.O.
[2020-09-13 10:37] LABS: Basophils Percent Auto 0.5 % (0.2-1.2); Eosinophils Absolute Auto 0.1 K/mm3 (0-0.3); Eosinophils Percent Auto 0.9 % (0-4.4); Hematocrit 50.5 % (37.0-47.0); Hemoglobin 16.8 g/dL (12.0-15.0); Immature Granulocyte Absolute 0.02 K/mm3 (0.00-0.031); Immature Granulocyte Percent A 0.3 % (0-0.5); Lymphocytes Absolute Auto 1.41 K/mm3 (0.9-3.2); Lymphocytes Percent Auto 21.7 % (18.3-44.2); Mean Corpuscular HGB Conc 33.3 g/dl (32-36); Mean Corpuscular Hemoglobin 31.7 pg (26-34); Mean Corpuscular Volume 95.3 fl (80-100); Mean Platelet Volume 10.4 fl (7.4-10.4); Monocytes Absolute Auto 0.7 K/mm3 (0.1-0.6); Monocytes Percent Auto 10.3 % (2.6-8.5); Neutrophils Absolute Auto 4.3 K/mm3 (1.3-6.7); Neutrophils Percent Auto 66.3 % (45.5-73.1); Platelet Count Result 233 k/mm3 (150-375); White Blood Count 6.5 K/mm3 (4.5-10.0)
--- NOTE | 2020-09-13 10:40 | ED.SOB ---
HPI - SOB/Dyspnea General Chief Complaint: Shortness of Breath/Dyspnea Stated Complaint: SOB Time Seen by Provider: 09/13/20 10:26 Source: patient and family Mode of arrival: ambulatory Limitations: no limitations History of Present Illness HPI Narrative: Patient is an 79-year-old female with a history of hypertension, atrial fibrillation anticoagulated with Eliquis, hypothyroidism who presents for evaluation shortness of breath. Patient states she has been short of breath over the past 36 hours. She denies any chest pain or palpitations. She has been compliant with her medications. She denies any pleuritic chest pain. No fever, chills, nausea or vomiting. No recent sick contacts. Patient does not notice any lower leg swelling or calf pain. No difficulty laying flat. No recent medication changes. Patient follows with Dr. Sarkar. Related Data Home Medications Medication Instructions Recorded Confirmed levothyroxine 100 mcg PO DAILY 10/17/19 11/01/19 metformin 500 mg PO DAILY 10/17/19 11/01/19 apixaban [Eliquis] 2.5 mg PO DAILY 09/13/20 metoprolol tartrate 12.5 mg PO DAILY 09/13/20 multivit with min-folic acid tablet PO 09/13/20 [Adult One Daily Multivitamin] Allergies Allergy/AdvReac Type Severity Reaction Status Date / Time No Known Allergies Allergy Verified 09/13/20 10:22 Review of Systems Review of Systems: Narrative: CONSTITUTIONAL: Denies fever, chills, or sweats. EYES: Denies visual changes, redness, or discharge. ENT: Denies rhinorrhea, congestion, sore throat, or otalgia. CARDIOVASCULAR: Denies chest pain, palpitations, or edema. RESPIRATORY: Denies cough, reports shortness of breath GASTROINTESTINAL: Denies abdominal pain, nausea, vomiting, or diarrhea. GENITOURINARY: Denies dysuria or hematuria. SKIN: Denies rash or itching. MUSCULOSKELETAL: Denies back pain, joint pain, or myalgia. NEUROLOGIC: Denies headache, numbness, or weakness. [facility] Past Medical History Medical History Arthritis Atrial fibrillation with rapid ventricular response Diabetes mellitus Heart murmur Hemorrhoid HLD (hyperlipidemia) HTN (hypertension) Hypothyroid Mitral regurgitation Surgical History Surgical History H/O: hysterectomy History of appendectomy No significant past surgical history S/P knee replacement Family History Family History (Updated 11/01/19 @ 11:00 by Anna Meneses CMA) Father Atrial fibrillation Mother Heart abnormality Social History Social History Smoking packs per day: 1 Smoking cigarettes per day: 20.0 Years smoked: 10 Smoking pack-years: 10.00 Smoking status: Former smoker Tobacco type: cigarettes Second hand tobacco smoke exposure: Yes Additional smoking assessment comments: Patient smoked for 10 years from [age] years of age. 1ppd. Alcohol intake: never Substance use: never Gender identity (if verbalized by the patient): Female Spiritual care concerns: No Agree to blood products: No Exam Narrative: Exam Narrative: GENERAL: Awake, alert, conversant HEAD: Normocephalic, atraumatic. EYES: PERRLA and EOMI. ENT: Nares clear, no rhinorrhea or epistaxis. Mucous membranes moist. NECK: Supple. CHEST: No respiratory distress, breathing even and non labored, mild crackles bilaterally, pacer left chest HEART: Tachycardia, irregularly irregular ABDOMEN:Non distended, non tender EXTREMITIES: Normal range of motion. No edema. SKIN: Warm, dry, no rash. NEURO:No focal deficits. Alert and oriented x3 Course Vital Signs Vital signs: Vital Signs Temperature 36.1 C L 09/13/20 10:20 Pulse Rate 180 H 09/13/20 10:20 Respiratory Rate 23 H 09/13/20 10:20 Blood Pressure 169/136 H 09/13/20 10:20 Pulse Oximetry 93 09/13/20 10:20 Temperature 36.1 C L 09/13/20 10:20 Pulse Rate
[2020-09-13 10:48] LABS: Anion Gap 10 mmol/L (8-16); Blood Urea Nitrogen 23 mg/dL (7-17); Calcium 9.4 mg/dL (8.4-10.2); Carbon Dioxide 24 mmol/L (22-30); Chloride 104 mmol/L (98-107); Estimated CRCL calculation 38 ml/min; Estimated Glomerular Filt Rate 43; Glucose 151 mg/dL (65-105); Potassium 4.1 mmol/L (3.4-5.0); Sodium 138 mmol/L (137-145)
[2020-09-13] MEDS: dilTIAZem HCl INJ 25 MG/5 ML VIAL 10 MG IV PUSH (10:58)
[2020-09-13] MEDS: MAGNESIUM SULF 2 GM/WATER 50ML 2 GM/50 ML BAG IVPB (11:09)
[2020-09-13 11:17] LABS: INR 1.2
[2020-09-13 11:18] LABS: Partial Thromboplastin Time 29.2 SECONDS (22.3-36.8)
--- NOTE | 2020-09-13 11:33 | PM.CNCAR ---
Assessment and Plan Assessment and plan (1) Diastolic heart failure: Code(s): I50.30 - Unspecified diastolic (congestive) heart failure Status: Acute Assessment and Plan: Stable. (2) Atrial fibrillation with rapid ventricular response: Code(s): I48.91 - Unspecified atrial fibrillation Status: Acute Assessment and Plan: Probably due to missing doses of her medications due to short term memory loss. Start Diltiazem drip and metoprolol PO doses for rate control. Continue Eliquis. (3) HTN (hypertension): Qualifiers: Hypertension type: unspecified Qualified Code(s): I10 - Essential (primary) hypertension Code(s): I10 - Essential (primary) hypertension Status: Chronic Assessment and Plan: Stable. (4) HLD (hyperlipidemia): Qualifiers: Hyperlipidemia type: unspecified Qualified Code(s): E78.5 - Hyperlipidemia, unspecified Code(s): E78.5 - Hyperlipidemia, unspecified Status: Chronic (5) Pacemaker: Code(s): Z95.0 - Presence of cardiac pacemaker Status: Acute Assessment and Plan: Patient thinks she has Biotronik device. She just had f/u with Dr. Hill at [facility] 2-3 weeks ago. Will need f/u with Sergio as outpatient. History of Present Illness History of Present Illness Consult date/time: 09/13/20 11:33 Reason for consult: Atrial fib with RVR. Patient seen in ED. Patient is a 79 yr old woman who presents to ED late last month for sob. 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 Hill at [facility]. She has a history of short memory loss, atrial fibrillation, pacemaker placed around summer 2019 in [place] being followed by her tapping machine operator automatic Dr. Hill at [facility], hypertension, dyslipidemia, DM, diastolic heart failure, edema. States that last night she went to bed then got up around midnight and noted being out of breath. Her who is present in ED brought her to ER. It was noted she was in rapid atrial fib at 180 bpm. She has short term memory problems and does not recall if she took her medication yesterday. Currently she received Diltiazem bolus in ED and her HR 120's bpm and she is noticing mild sob. Denies chest pain, palpitations, orthopnea. She has edema of both legs. She can walk around in her house without any problems. Cardiovascular Procedures Echo/MUGA:: 10/17/19 Echo: EF 55-60%, mod LVH, diastolic function not assessed, atrial fib, severe LAE, mild ELVIA, mild , mod MAC, mod-severe MR, mild-mod TR, RVSP 46 mmHg s/o mild pulm hypertension. Electrophysiology:: 09/13/20 EKG: Atrial fibrillation at 175 bpm, cannot r/o septal infarct, age indeterminate, ST-T wave abnormality in lateral leads. 10/16/19 EKG: Atrial fibrillation at 117 bpm, cannot r/o septal infarct, age indeterminate, borderline ST-T wave in inf/lat leads Reason For Visit: SOB Review of Systems Review of Systems: All systems reviewed & are unremarkable except as noted in HPI and below Constitutional: Constitutional: Reports as per HPI, Denies chills and Denies fever(s) Cardiovascular: Cardiovascular: Reports as per HPI, Denies chest pain, Reports irregular heart rhythm, Reports leg edema, Denies lightheadedness and Reports dyspnea Respiratory: Respiratory: Reports as per HPI and Reports dyspnea Gastrointestinal: Gastrointestinal: Reports as per HPI and Denies abdominal pain Genitourinary: Genitourinary: Reports as per HPI [facility] Past Medical History Medical History Arthritis Atrial fibrillation with rapid ventricular response Diabetes mellitus Heart murmur Hemorrhoid HLD (hyperlipidemia) HTN (hypertension) Hypothyroid Mitral regurgitation Surgical History Surgical History H/O: hysterectomy History of appendectomy No significant past surgical history S/P knee replacement Family History Family History (Updat
[2020-09-13 11:40] LABS: Troponin I 0.051 ng/mL (0.000-0.034)
[2020-09-13 11:42] LABS: NT Pro B Type Natriuretic Pept 4250 PG/ML (5-100)
[2020-09-13] MEDS: FUROSEMIDE INJ 40 MG/4 ML VIAL IV PUSH (13:37)
[2020-09-13] MEDS: METOPROLOL TARTRATE 25 MG TABLET PO ×3 (13:38→22:58)
--- NOTE | 2020-09-13 14:26 | ADMGEN ---
This patient, Jacqueline Fine, was admitted to IMU Room 202-01. Patient/family oriented to hospital policies and general routines including ID bracelet, bed and alarms, visiting hours, pain management, procedures, bathroom and other care routines, personal items, smoking policy, room service/diet, and visiting hours. Information on how to activate the Rapid Response Team has been discussed. Patient/Family are encouraged to report perceived risks to care and to ask questions if they do not understand what they are told or what they should do.
--- NOTE | 2020-09-13 15:11 | PM.IMHP ---
H&P: HPI History of Present Illness Date/Time: 09/13/20 15:11 Chief Complaint: Orthopnea Narrative: Jacqueline Fine is a 79 year old female who has a history of having atrial fibrillation, hypothyroidism, and diastolic congestive heart failure. She also has a pacemaker and she typically sees a numerical control lathe operator at [facility]. The patient has been more short of breath over the last 36 hours. She is having difficulty sleeping at night. The patient is scheduled to have a sleep study but has a history of sleep apnea at this time. She stated that her does [place] that she snores. She does have edema to her lower extremities but she said there are not any more edematous than usual. She does not typically wear oxygen at home and is currently on room air.. She is anticoagulated with Eliquis for her atrial fibrillation. She states that she lines or medications every day and just takes him according to where they were positioned is in line in her cabinet. She denies having any short-term memory loss. She has had no fever chills or cough or nausea vomiting. She has not been any direct contact with anybody that has COVID-19. She has been isolating during the holidays. The patient has orthopnea. She has been following with Dr. Sarkar and he was consulted today. The patient's heart rate in the 180s and was a regular. This was consistent with AFib with RVR. She was started on a Cardizem drip and her heart rate is in the lower 100s now. The patient was seen by her numerical control lathe operator here. Who recommended that she continue with her home medications. Likely congestive heart failure with cardiomegaly mild pulmonary congestion. Mild opacities at the left lung base most likely atelectasis hiatal hernia. The patient was given IV Lasix in the emergency room. And she has made 2 trips to the restroom while I was interviewing her. The 1st trip she had at least 500 mL of urine output. Her lower extremities continue to be edematous but she stated this is normal for her. She typically wears ANA hose at home. Magnesium as well and metoprolol oral. Troponin 0.015 and she is having no chest pain. BNP is 4250. TSH was within normal limits. Creatinine 1.2. Patient is being admitted to observation status on the date of service of 09/13/2020. Review of Systems Review of Systems: All systems reviewed & are unremarkable except as noted in HPI and below Constitutional: Constitutional: Reports as per HPI and Reports no additional constitutional complaints Eyes: Eyes: Reports as per HPI and Reports no additional eye complaints ENT: Reports system reviewed and no additional complaints, except as documented and Reports Normal hearing present Cardiovascular: Cardiovascular: Reports no additional cardiovascular complaints Respiratory: Respiratory: Reports no additional respiratory complaints and Reports no additional respiratory complaints Gastrointestinal: Gastrointestinal: Reports as per HPI and Reports no additional gastrointestinal complaints Musculoskeletal: Musculoskeletal: Reports no additional musculoskeletal complaints Integumentary/Breasts: Skin/Breast: Reports system reviewed and no additional complaints, except as docu and Reports as per HPI Neurologic: Reports system reviewed and no additional complaints, except as documented, Reports as per HPI and Reports Normal hearing present Psychiatric: Psychiatric: Reports no additional psychiatric complaints and Reports as per HPI Endocrine: Endocrine: Reports no additional endocrine complaints Hematologic/Lymphatic: Hematologic/Lymphatic: Reports no additional hematologic/lymphatic complaints Allergic/Immunologic: Allergic/Immunologic: Reports no additional allergic/immunologic complaints [facility] Past Medical History Medical History (Updated 09/13/20 @ 15:27 by Amaya Ladd NP) Arthritis Atrial fibrillation with rapid ventricular response Diabetes mellitus Heart murmur Hemorrhoid HLD (hyperli
[2020-09-13 16:57] LABS: Troponin I 0.058 ng/mL (0.000-0.034)
[2020-09-13 17:12] LABS: Hemoglobin A1C 6.4 % (<5.7)
[2020-09-13 17:43] LABS: Glucose Point of Care 158 (65-105)
[2020-09-13 19:30] LABS: Troponin I 0.069 ng/mL (0.000-0.034)
[2020-09-13] MEDS: APIXABAN 2.5 MG TABLET PO (20:22)
[2020-09-13] MEDS: MELATONIN 5 MG TABLET 10 MG PO (20:23)
[2020-09-13 20:25] LABS: Glucose Point of Care 147 (65-105)
[2020-09-14] VITALS (9 sets, daily range): BP systolic 120–142; BP diastolic 60–88; PULSE 66–90; RESP 18; TEMP 35.6–36.1; O2SAT 94–98
[2020-09-14] MEDS: METOPROLOL TARTRATE 25 MG TABLET PO ×2 (06:07→08:40)
[2020-09-14] MEDS: LEVOTHYROXINE SODIUM 100 MCG TABLET PO (06:08)
[2020-09-14 06:40] LABS: Basophils Percent Auto 0.5 % (0.2-1.2); Eosinophils Absolute Auto 0.1 K/mm3 (0-0.3); Eosinophils Percent Auto 2.6 % (0-4.4); Hematocrit 43.6 % (37.0-47.0); Hemoglobin 14.6 g/dL (12.0-15.0); Immature Granulocyte Absolute 0.01 K/mm3 (0.00-0.031); Immature Granulocyte Percent A 0.2 % (0-0.5); Lymphocytes Absolute Auto 1.55 K/mm3 (0.9-3.2); Lymphocytes Percent Auto 28.2 % (18.3-44.2); Mean Corpuscular HGB Conc 33.5 g/dl (32-36); Mean Corpuscular Hemoglobin 31.6 pg (26-34); Mean Corpuscular Volume 94.4 fl (80-100); Mean Platelet Volume 10.4 fl (7.4-10.4); Monocytes Absolute Auto 0.8 K/mm3 (0.1-0.6); Monocytes Percent Auto 14.4 % (2.6-8.5); Neutrophils Percent Auto 54.1 % (45.5-73.1); Platelet Count Result 217 k/mm3 (150-375); Red Blood Count 4.62 M/mm3 (4.2-5.4); White Blood Count 5.5 K/mm3 (4.5-10.0)
[2020-09-14 06:54] LABS: Alanine Aminotransferase 34 U/L (4-35); Albumin Level 3.4 g/dL (3.5-5.1); Alkaline Phosphatase 58 U/L (38-126); Anion Gap 8 mmol/L (8-16); Aspartate Amino Transferase 29 U/L (14-36); Bilirubin,Total 1.4 mg/dL (0.2-1.3); Blood Urea Nitrogen 26 mg/dL (7-17); Calcium 8.6 mg/dL (8.4-10.2); Carbon Dioxide 26 mmol/L (22-30); Chloride 105 mmol/L (98-107); Estimated CRCL calculation 41 ml/min; Estimated Glomerular Filt Rate 48; Glucose 123 mg/dL (65-105); Potassium 3.6 mmol/L (3.4-5.0); Sodium 139 mmol/L (137-145)
[2020-09-14] MEDS: lisinopriL 20 MG TABLET PO (08:40)
[2020-09-14] MEDS: MAGNESIUM OXIDE 400 MG TABLET PO (08:40)
[2020-09-14] MEDS: POTASSIUM CHLORIDE 10 MEQ TABLET.ER PO (08:40)
[2020-09-14] MEDS: FUROSEMIDE INJ 40 MG/4 ML VIAL IV PUSH (08:40)
[2020-09-14] MEDS: CHOLECALCIFEROL 1,000 UNITS TABLET 1000 UNITS PO (08:40)
--- NOTE | 2020-09-14 09:08 | PM.PNCARD ---
Progress Note: A&P Assessment and Plan (1) Diastolic heart failure: Code(s): I50.30 - Unspecified diastolic (congestive) heart failure Status: Acute Assessment and Plan: Stable. (2) Atrial fibrillation with rapid ventricular response: Code(s): I48.91 - Unspecified atrial fibrillation Status: Acute Assessment and Plan: Probably due to missing doses of her medications due to short term memory loss. Rate controlled on Diltiazem drip, therefore, will change Diltiazem drip to Diltiazem CD 240 mg daily and Metoprolol to 25 mg BID. Continue Eliquis. January d/c home from cardiology standpoint to f/u with her regular farm owner operator, Dr. Hill at [place] in next 2 weeks. (3) HTN (hypertension): Qualifiers: Hypertension type: unspecified Qualified Code(s): I10 - Essential (primary) hypertension Code(s): I10 - Essential (primary) hypertension Status: Chronic Assessment and Plan: Stable. (4) HLD (hyperlipidemia): Qualifiers: Hyperlipidemia type: unspecified Qualified Code(s): E78.5 - Hyperlipidemia, unspecified Code(s): E78.5 - Hyperlipidemia, unspecified Status: Chronic (5) Pacemaker: Code(s): Z95.0 - Presence of cardiac pacemaker Status: Acute Assessment and Plan: Patient thinks she has Biotronik device. She just had f/u with Dr. Hill at [facility] 2-3 weeks ago. Will need f/u with Sergio as outpatient. Subjective Date/time seen: 09/14/20 09:08 Patient denies any more sob. No chest pains. She is feeling well and would like to go home. Exam Const: General: cooperative, healthy appearing and comfortable Resp: Auscultation: clear to auscultation bilaterally, no crackles, no rales, no rhonchi and no wheezes Cardio: Jugular venous distension: no JVD Rate: regular rate Rhythm: abnormal rhythm Heart sounds: no murmurs GI: GI Palp: No abdominal tenderness and Yes Soft to palpation Neuro: General: oriented to person, oriented to place and oriented to time Extrem: Right lower extremity: no edema Left lower extremity: no edema Objective Data Vital Signs Vital Signs: Vital Signs - 24 hr 09/13/20 10:20 09/13/20 10:24 09/13/20 10:58 Temperature 97 F L Pulse Rate 180 H 182 H 158 H Respiratory Rate 23 H Blood Pressure 169/136 H 163/137 H Pulse Oximetry 93 09/13/20 11:00 09/13/20 11:10 09/13/20 11:49 Temperature Pulse Rate 144 H 133 H 124 H Respiratory Rate 18 22 H 18 Blood Pressure 135/99 H Pulse Oximetry 94 94 93 09/13/20 12:32 09/13/20 13:38 09/13/20 14:33 Temperature 97.4 F L Pulse Rate 131 H 109 H 107 H Respiratory Rate 19 20 Blood Pressure 152/99 H 144/84 H Pulse Oximetry 100 97 09/13/20 15:56 09/13/20 16:00 09/13/20 17:31 Temperature 97.3 F L Pulse Rate 99 89 102 H Respiratory Rate 20 Blood Pressure 137/67 Pulse Oximetry 92 09/13/20 18:00 09/13/20 19:40 09/13/20 20:00 Temperature 97 F L Pulse Rate 106 H 73 92 Respiratory Rate 18 Blood Pressure 124/66 Pulse Oximetry 92 09/13/20 22:00 09/13/20 22:58 09/13/20 23:05 Temperature Pulse Rate 81 80 Respiratory Rate Blood Pressure Pulse Oximetry 95 09/14/20 00:00 09/14/20 02:00 09/14/20 04:00 Temperature 97 F L 97 F L Pulse Rate 86 69 77 Respiratory Rate 18 18 Blood Pressure 142/85 H 132/68 Pulse Oximetry 94 98 09/14/20 06:00 09/14/20 06:07 09/14/20 08:00 Temperature 96.9 F L Pulse Rate 82 90 77 Respiratory Rate 18 Blood Pressure 120/60 Pulse Oximetry 96 09/14/20 08:40 Temperature Pulse Rate 83 Respiratory Rate Blood Pressure Pulse Oximetry Intake/Output Intake/Output: Intake & Output 09/11/20 09/12/20 09/13/20 09/14/20 23:59 23:59 23:59 23:59 Intake Total 290 740 Output Total 1350 600 Balance -1060 140 Meds/Results Medications: Active Medications Generic Name Dose Route Start Last Admin Trade Name Freq
[2020-09-14] MEDS: APIXABAN 2.5 MG TABLET PO (09:58)
[2020-09-14 10:27] LABS: Glucose Point of Care 140 (65-105)
[2020-09-14 12:06] LABS: Glucose Point of Care 94 (65-105)
--- NOTE | 2020-09-14 12:48 | PM.DS ---
DS: Admitting Diagnosis Admitting Diagnosis Admitting Diagnosis: SOB DS: Discharge Diagnosis Discharge Diagnosis (1) Atrial fibrillation with RVR: Code(s): I48.91 - Unspecified atrial fibrillation Status: Acute Assessment and Plan: The patient's heart rate is in the lower 100s. She is currently on a diltiazem drip. I did read the cardiology note that stated that we should continue with metoprolol p.o. doses as well and continue Eliquis. Non compliance possibly due to memory. Pt seen by cardiology , her medications adjusted stable for discharge. (2) CHF (congestive heart failure): Qualifiers: Heart failure chronicity: unspecified Heart failure type: unspecified Qualified Code(s): I50.9 - Heart failure, unspecified Code(s): I50.9 - Heart failure, unspecified Status: Chronic Assessment and Plan: In October she has diastolic congestive heart failure. (3) Elevated troponin: Code(s): R77.8 - Other specified abnormalities of plasma proteins Status: Acute Assessment and Plan: Patient has orthopnea but has no complaints of chest pain. (4) HTN (hypertension): Qualifiers: Hypertension type: unspecified Qualified Code(s): I10 - Essential (primary) hypertension Code(s): I10 - Essential (primary) hypertension Status: Chronic Assessment and Plan: Continue with Lasix, metoprolol and lisinopril (5) HLD (hyperlipidemia): Qualifiers: Hyperlipidemia type: unspecified Qualified Code(s): E78.5 - Hyperlipidemia, unspecified Code(s): E78.5 - Hyperlipidemia, unspecified Status: Chronic Assessment and Plan: Continue home medication. I do not see any statins on her list. (6) Hypothyroid: Code(s): E03.9 - Hypothyroidism, unspecified Status: Acute Assessment and Plan: Her TSH is within normal limits. Continue levothyroxine. (7) Diabetes mellitus: Qualifiers: Diabetes mellitus complication status: without complication Diabetes mellitus senior care insulin use: without senior care use Diabetes mellitus type: type 2 Qualified Code(s): E11.9 - Type 2 diabetes mellitus without complications Code(s): E11.9 - Type 2 diabetes mellitus without complications Status: Chronic Assessment and Plan: Accu-Cheks AC and HS. Continue to monitor blood sugars check A1c. Holding metformin at this time. Holding metformin creatinine 1.2 at this time. DS: Summary Hospital Course Hospital Course: Patient with chronic AFIB now with RVR. Patient admitted to the IMU and started on Cardizem IV for rate control. Cardiology consulted and appreciate their input. Echo returned showing moderate-severe MR with preserved EF 55-60% and pulmonary HTN. Eliquis resumed. Coreg resumed and Diltiazem changed to oral route. Pt also had iv lasix in the hospital Time Spent with Patient Time attestation: Total time spent providing and/or coordinating discharge services:40 minutes on day of discharge Exam Const: General: cooperative, healthy appearing, comfortable, no acute distress, well developed, awake and Physically active Nutritional Appearance: average body habitus and well nourished Orientation/consciousness: oriented to person, oriented to place, oriented to time and patient oriented x3 Limitations: no limitations Cardio: Rate: regular rate Rhythm: regular rhythm Heart sounds: S1 normal heart sound present and S2 normal heart sound present Peripheral pulses: Peripheral pulses 2+ throughout GI: Inspection: normal to inspection Auscultation: normal bowel sounds Rectal Exam: deferred Neuro: General: oriented to person, oriented to place, oriented to time and patient oriented x3 Cranial nerves: Yes Equal, round and reactive pupils present and Yes Normal hearing present Cognition (Neuro): normal cognition Speech: normal speech Gait exam (Neuro): Normal gait present Motor exam (neuro): 5
== END 2020-09-14 13:44 | disposition home or self-care (01) ==
LOC: ANHED 12:28 → ANHIMU 13:34
PROVIDERS: Nurse Practitioner; Admitting Provider Family Medicine; Emergency Provider Emergency Medicine; PCP Internal Medicine; Visit Provider Family Medicine
DX: I48.91 Unspecified atrial fibrillation (principal); R06.02 Shortness of breath; R77.8 Other specified abnormalities of plasma proteins; I11.0 Hypertensive heart disease with heart failure; I50.30 Unspecified diastolic (congestive) heart failure; R60.0 Localized edema; E03.9 Hypothyroidism, unspecified; E11.9 Type 2 diabetes mellitus without complications; E78.5 Hyperlipidemia, unspecified; I34.0 Nonrheumatic mitral (valve) insufficiency; Z87.891 Personal history of nicotine dependence; Z79.84 Long term (current) use of oral hypoglycemic drugs; Z79.01 Long term (current) use of anticoagulants; Z95.0 Presence of cardiac pacemaker
CPT/HCPCS: 36415; 71045; 80048; 80053; 83036; 83735; 83880; 84443; 84484; 85025; 85610; 85730; 93005; 94762; 96365; 96366; 96367; 96368; 96375; 99285; A9270; G0378; J1940; J3475

== ENCOUNTER 2021-01-04 20:49 | Emergency (ER) | payer MEDICARE, SELFPAY ==
--- NOTE | ~2021-01-04 | CT_ITS ---
EXAMINATION: CTA UE RT DATE: 01/04/2021 23:09 INDICATION: Right upper limb peripheral arterial disease. TECHNIQUE: Computed tomographic angiography (CTA) of the right upper limb was performed with 100 mL O mnipaque-350 intravenous contrast. Automated exposure control and iterative reconstruction technique were employed. The dose-length product was 2636.48 mGy-cm. Maximum intensity projection 3D-reconstruc tions of the aorta and other arteries were constructed by the technologist on a separate workstation. COMPARISON: None. FINDINGS: Bone alignment is normal. No fracture. There is total occlusion of right brachial artery wi th distal reconstitution and then distal reocclusion. There is reconstitution of flow in the radial a nd ulnar arteries. The hand arteries are not well evaluated. There is a large sliding hiatal hernia. IMPRESSION: 1. 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 Reviewed, dictated and finalized at location A.
--- NOTE | ~2021-01-04 | CT_ITS ---
EXAMINATION: CT brain wo con DATE: 01/04/2021 22:57 INDICATION: Right upper extremity weakness. TECHNIQUE: Computed tomography (CT) of the head was performed without intravenous contrast. The mA wa s adjusted according to patient size. Iterative reconstruction technique was employed. The dose-lengt h product was 605.33 mGy-cm. COMPARISON: None FINDINGS: There are scattered areas of low attenuation in the cerebral white matter. There is no intr acranial hemorrhage, acute infarction, or abnormal intracranial mass lesion. The ventricles are julio l in size. There is mild mucosal thickening in the paranasal sinuses. There is a trace right mastoid effusion. There are likely changes of left ocular lens replacement surgery. IMPRESSION: 1. Mild nonspecific cerebral white matter disease, which likely represents chronic small vessel ische yaritza disease. Reviewed, dictated and finalized at location A. IMPRESSION: 1. Mild nonspecific cerebral white matter disease, which likely represents supplemental nurse shaila small vessel ischemic disease.
[2021-01-04 20:51] VITALS: BP 184/106; PULSE 107; RESP 20; TEMP 36.1; O2SAT 97
--- NOTE | 2021-01-04 21:38 | ECG_ITS ---
Measurements Intervals [place] Rate: 153 P: AK: 0 QRS: 24 QRSD: 82 T: 159 QT: 265 QTc: 423 Interpretive Statements ATRIAL FIBRILLATION WITH RAPID VENTRICULAR RESPONSE VOLTAGE CRITERIA FOR LVH CANNOT RULE OUT SEPTAL INFARCT, AGE INDETERMINATE NONSPECIFIC ST & T-WAVE ABNORMALITY- INF/HIGH LAT LEADS BASELINE ARTIFACT- I, II, III, AVR, AVL,A VF, V3-V6 ABNORMAL ECG Electronically Signed On 01-05-2021 7:29:18 CDT by José Miguel Sarkar D.O.
[2021-01-04 21:39] VITALS: BP 157/105; PULSE 170; RESP 17; O2SAT 96
[2021-01-04 21:40] LABS: Basophils Absolute Auto 0.1 K/mm3 (0.0-0.1); Basophils Percent Auto 0.7 % (0.2-1.2); Eosinophils Absolute Auto 0.2 K/mm3 (0-0.3); Eosinophils Percent Auto 2.2 % (0-4.4); Hematocrit 52.5 % (37.0-47.0); Hemoglobin 17.2 g/dL (12.0-15.0); Immature Granulocyte Absolute 0.04 K/mm3 (0.00-0.031); Immature Granulocyte Percent A 0.5 % (0-0.5); Immature Platelet Fraction Pct 4.5 % (0.9-11.2); Lymphocytes Absolute Auto 1.14 K/mm3 (0.9-3.2); Lymphocytes Percent Auto 15.5 % (18.3-44.2); Mean Corpuscular HGB Conc 32.8 g/dl (32-36); Mean Corpuscular Hemoglobin 31.7 pg (26-34); Mean Corpuscular Volume 96.9 fl (80-100); Monocytes Absolute Auto 0.8 K/mm3 (0.1-0.6); Monocytes Percent Auto 11.4 % (2.6-8.5); Neutrophils Absolute Auto 5.1 K/mm3 (1.3-6.7); Neutrophils Percent Auto 69.7 % (45.5-73.1); Platelet Count Result 242 k/mm3 (150-375); Red Blood Count 5.42 M/mm3 (4.2-5.4); Red Cell Distribution Width 14.6 % (11.5-14.5); White Blood Count 7.4 K/mm3 (4.5-10.0)
[2021-01-04 21:52] LABS: INR 1.1; Prothrombin Time 14.6 Seconds (11.1-14.7)
[2021-01-04] MEDS: dilTIAZem HCl INJ 25 MG/5 ML VIAL 10 MG IV PUSH ×2 (21:52→23:43)
[2021-01-04 21:53] VITALS: BP 157/105; PULSE 130
[2021-01-04 21:53] LABS: Lactic Acid Reflex 1.8 mmol/L (0.7-2.1); Partial Thromboplastin Time 21.8 SECONDS (22.3-36.8)
[2021-01-04 21:55] LABS: Alanine Aminotransferase 34 U/L (4-35); Albumin Level 4.1 g/dL (3.5-5.1); Alkaline Phosphatase 76 U/L (38-126); Anion Gap 10 mmol/L (8-16); Aspartate Amino Transferase 35 U/L (14-36); Bilirubin,Total 1.1 mg/dL (0.2-1.3); Blood Urea Nitrogen 29 mg/dL (7-17); Calcium 9.2 mg/dL (8.4-10.2); Carbon Dioxide 25 mmol/L (22-30); Chloride 104 mmol/L (98-107); Estimated CRCL calculation 45 ml/min; Estimated Glomerular Filt Rate 53; Glucose 152 mg/dL (65-105); Magnesium 1.8 mg/dL (1.6-2.3); Potassium 3.7 mmol/L (3.4-5.0); Sodium 139 mmol/L (137-145)
[2021-01-04 21:59] VITALS: BP 155/86; PULSE 112; RESP 16; O2SAT 97
[2021-01-04 22:01] VITALS: BP 160/93; PULSE 120; RESP 16; O2SAT 97
[2021-01-04 22:08] LABS: Troponin I 0.068 ng/mL (0.000-0.034)
[2021-01-04 22:10] LABS: Large Platelets Present; Platelet Clumps Present; Platelet Estimate Adequate (Adequate)
--- NOTE | 2021-01-04 22:32 | ED.GENADULT ---
HPI - General Adult General Chief complaint: Neuro Symptoms/Deficit Stated complaint: Right arm numbness, doesn't feel normal. Time Seen by Provider: 01/04/21 21:02 History of Present Illness HPI narrative: Patient is a 80-year-old female who presents the emergency department with chief complaint of full right upper extremity. Patient reports that she has history of atrial fibrillation and is on anticoagulants patient noted that today's afternoon around 4 PM she started feeling as though her right hand was cool and felt patient states that it is not improved or worsened by anything she patient reports has been compliant with her medications patient denies chest pain or shortness of breath. The patient reports that she went over to either [facility] or [facility] the waiting room and felt as though she was being lowered and the patient decided to leave AGAINST MEDICAL ADVICE and come over to our facility for further evaluation. Patient reports that she has a upcoming appointment with a etymology professor for further evaluation in the she has seen upcoming weeks. Related Data Home Medications Medication Instructions Recorded Confirmed levothyroxine 100 mcg PO DAILY 10/17/19 09/13/20 metformin 500 mg PO DAILY 10/17/19 09/13/20 Eliquis 2.5 mg PO DAILY 09/13/20 09/13/20 cholecalciferol (vitamin D3) 25 mcg PO DAILY 09/13/20 09/13/20 [Vitamin D3] furosemide 40 mg PO DAILY 09/13/20 09/13/20 melatonin 10 mg PO HS 09/13/20 09/13/20 Allergies Allergy/AdvReac Type Severity Reaction Status Date / Time No Known Allergies Allergy Verified 01/04/21 20:56 Review of Systems Review of Systems: Narrative: A 10 system review of systems was completed on the patient and is negative except for what is stated in the HPI. Nursing and ancillary documentation was reviewed. [facility] Past Medical History Medical History Arthritis Atrial fibrillation with rapid ventricular response Diabetes mellitus Heart murmur Hemorrhoid HLD (hyperlipidemia) HTN (hypertension) Hypothyroid Mitral regurgitation Surgical History Surgical History H/O left cataract extraction H/O: hysterectomy History of appendectomy No significant past surgical history S/P knee replacement Bilateral Family History Family History Father Atrial fibrillation Acute myocardial infarction Mother Heart abnormality Sibling Cancer Sibling Breast cancer Social History Social History Social History: The patient lives at home with her who she has been to for 55 years. She has 4 sons. Her is a durable power state's attorney for healthcare she desires to be a full code. The patient smoked from the age of [age] at least a pack a cigarettes a day if not more. The patient quit when she was 25 years old. She does not use any alcohol marijuana or illicit drugs. She is Jew denomination. 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 Smoking packs per day: 1 Smoking cigarettes per day: 20.0 Years smoked: 10 Smoking pack-years: 10.00 Smoking status: Former smoker Tobacco type: cigarettes Second hand tobacco smoke exposure: Yes Additional smoking assessment comments: Patient smoked for 10 years from [age] years of age. 1ppd. Alcohol intake: never Substance use: never Gender identity (if verbalized by the patient): Female Spiritual care concerns: No Agree to blood products: No Exam Narrative: Exam Narrative: GENERAL: Well-appearing, well-nourished, and in no acute distress. HEAD: Normocephalic, atraumatic. EYES: PERRLA and EOMI. ENT: Nares clear, no rhinorrhea or epistaxis. Mucous membranes moist. NECK: Supple. CHEST: Clear to auscultation. No respiratory distress. HEART: Irregularly irregular
[2021-01-04 22:53] VITALS: BP 161/120; PULSE 137; RESP 25; O2SAT 98
[2021-01-05] VITALS (10 sets, daily range): BP systolic 155–179; BP diastolic 79–137; PULSE 99–119; RESP 15–31; TEMP 36.8; O2SAT 90–100
[2021-01-05] MEDS: HEPARIN SODIUM 5,000 UNITS/ML VIAL 6000 UNITS IV PUSH (00:11)
[2021-01-05] MEDS: HEPARIN SOD/D5W 100 UNITS/ML 25,000 UNITS/250 ML BAG 13 UNITS IV CONT (00:15)
--- NOTE | 2021-01-05 00:28 | PC.NURSE ---
called [facility] to request transport. ETA [id number]
--- NOTE | 2021-01-05 01:20 | PC.NURSE ---
called [facility] for ETA update. ETA is still [id number]
--- NOTE | 2021-01-05 02:05 | PC.NURSE ---
called [facility] for ETA update. ETA [id number]
--- NOTE | 2021-01-05 02:13 | PC.NURSE ---
called [facility] to request transport. ETA drive time from [place]
--- NOTE | 2021-01-05 03:08 | PC.NURSE ---
IV infusing on transfer
== END 2021-01-05 03:09 | disposition short-term general hospital (02) ==
PROVIDERS: Emergency Provider Emergency Medicine; PCP Internal Medicine
DX: I65.1 Occlusion and stenosis of basilar artery (principal); I48.91 Unspecified atrial fibrillation; E11.9 Type 2 diabetes mellitus without complications; E78.5 Hyperlipidemia, unspecified; I10 Essential (primary) hypertension; E03.9 Hypothyroidism, unspecified; I34.0 Nonrheumatic mitral (valve) insufficiency; M19.90 Unspecified osteoarthritis, unspecified site; Z79.01 Long term (current) use of anticoagulants; Z98.42 Cataract extraction status, left eye; Z96.653 Presence of artificial knee joint, bilateral; Z87.891 Personal history of nicotine dependence; R94.31 Abnormal electrocardiogram [ECG] [EKG]; R90.82 White matter disease, unspecified
CPT/HCPCS: 36415; 70450; 73206; 80053; 83605; 83735; 84484; 85025; 85055; 85610; 85730; 93005; 96374; 96376; 99285; J1644; Q9967